=== PATIENT | male | born 1970 | race Caucasian/White ===

== ENCOUNTER 2018-12-09 07:56 | Emergency (ER) | payer BC, OTHER ==
[2018-12-09 10:49] VITALS: BP 146/80
--- NOTE | 2018-12-09 11:58 | UC ---
Neck Pain HPI - HPI Summary HPI Summary: W ILE AT WORK PATIENT WAS PULLING A ROPE WHEN HE FELL BACKWARDS AND STRUCK THE BACK OF HIS HEAD AND HIS SHOULDERS ON THE GROUND. NO LOC. NO HEADACHE. IS COMPLAINING OF NECK PAIN AND LEFT SHOULDER PAIN. HAS HISTORY OF C-SPINE FUSION. ] - History of Current Complaint Chief Complaint: UCHeadInjury Stated Complaint: HEAD/SHOULDER INJURY Time Seen by Provider: 12/09/18 08:15 Hx Obtained From: Patient Onset/Duration Of Injury/Symptoms: Hours Mechanism Of Injury: Blunt Trauma Timing: Constant Onset/Duration: Sudden Onset, Lasting Hours, Still Present Severity: Moderate Pain Intensity: 3 Pain Scale Used: 0-10 Numeric Character: Sharp, Aching, Stiff Aggravating Factors: Movement Alleviating Factors: Nothing Associated Signs & Symptoms: Positive: Negative Related History: Previous Neck Injury - Allergies/Home Medications Allergies/Adverse Reactions: Allergies Allergy/AdvReac Type Severity Reaction Status Date / Time No Known Allergies Allergy Verified 12/09/18 08:11 PMH/Surg Hx/FS Hx/Imm Hx - Additional Past Medical History Additional PMH: CHRONIC NECK PAIN, C-SPINE FUSION Endocrine History: Thyroid Disease Cardiovascular History: Hypertension - Surgical History Surgical History: Yes Surgery Procedure, Year, and Place: APPENDIX REMOVED 2008. fused c4-5-6, broken neck x2 - Family History Known Family History: Positive: None - Social History Alcohol Use: Occasionally Substance Use Type: None Smoking Status (MU): Light Every Day Tobacco Smoker Type: Cigarettes Amount Used/How Often: 1 tin per day When Did the Patient Quit Smoking/Using Tobacco: 16 years ago Household Exposure Type: Cigarettes - Immunization History Most Recent Influenza Vaccination: not recently Most Recent Tetanus Shot: UTD Review of Systems All Other Systems Reviewed And Are Negative: Yes Constitutional: Positive: Negative Skin: Positive: Negative Respiratory: Positive: Negative Cardiovascular: Positive: Negative Gastrointestinal: Positive: Negative Musculoskeletal: Positive: Arthralgia, Decreased ROM, Myalgia Physical Exam Triage Information Reviewed: Yes Appearance: Well-Nourished, Pain Distress - MODERATE Vital Signs: Initial Vital Signs Temp 99.5 F 12/09/18 08:06 Pulse 77 12/09/18 08:06 Resp 18 12/09/18 08:06 BP 144/102 12/09/18 08:06 Pulse Ox 96 12/09/18 08:06 Vital Signs Reviewed: Yes Eyes: Positive: Conjunctiva Clear ENT: Positive: Hearing grossly normal Neck: Positive: Supple, No Lymphadenopathy, Tenderness @ - POSTERIOR NECK Respiratory Exam: Normal Cardiovascular Exam: Normal Abdomen Description: Positive: Soft Musculoskeletal: Positive: No Edema, ROM Limited @ - NECK Neurological: Positive: Alert Psychological: Positive: Age Appropriate Behavior Skin: Negative: Rashes Diagnostics - Radiology CT C-SPINE Radiology Interpretation Completed By: Radiologist Summary of Radiographic Findings: Fusion of C4-C7. No fracture is identified. Neck Pain Course/Dx - Differential Dx/Diagnosis Provider Diagnosis: Contusion, Acute neck pain Discharge ED - Sign-Out/Discharge Documenting (check all that apply): Patient Departure All imaging exams completed and their final reports reviewed: Yes - Discharge Plan Condition: Stable Disposition: HOME Prescriptions: Cyclobenzaprine TAB* [Flexeril TAB*] 10 mg PO BID PRN #30 tab PRN Reason: Pain Ibuprofen TAB* [Motrin TAB* 600 MG] 1 tab PO Q6H PRN #30 tab PRN Reason: Pain Patient Education Materials: Contusion in Adults (ED), Acute Neck Pain (ED) Forms: *Work Release Referrals: Octavio PLAZA PRICE CHANGERLauren [Primary Care Provider] - If Needed Additional Instructions: CT SCAN OF YOUR NECK TODAY WAS NEGATIVE FOR ACUTE INJURY. TAKE 600MG IBUPROFEN EVERY 6 HRS AND ACETAMINOPHEN 650MG EVERY 6 HOURS - STAGGERED (SO YOU CAN TAKE SOMETHING EVERY 3 HOURS IF NEEDED.) GO TO THE ED WITHOUT FAIL IF YOU DEVELOP WORSENING PAIN, UNEQUAL PUPILS, VISUAL DISTURBANCE, GAIT INSTABILITY, SPEECH DIFFICULTY, NAUSEA/VOMITING, WORSENING HEADACHE, DIZZINESS, CONFUSION, WEAKNESS OR ANY OTHER CONCERNING SYMPTOMS. - Billing Disposition and Condition Condition: STABLE Disposition: Home
== END 2018-12-09 10:30 | disposition home or self-care (01) ==
LOC: UCEAST 07:56
DX: S10.93XA Contusion of unspecified part of neck, initial encounter (principal); W17.89XA Other fall from one level to another, initial encounter; Y93.39 Activity, other involving climbing, rappelling and jumping off; Y92.89 Other specified places as the place of occurrence of the external cause; Y99.0 Civilian activity done for income or pay; E07.9 Disorder of thyroid, unspecified; I10 Essential (primary) hypertension; F17.210 Nicotine dependence, cigarettes, uncomplicated
CPT/HCPCS: 72125; 99202; G0463

== ENCOUNTER 2018-12-11 11:07 | Emergency (ER) | payer BC, OTHER ==
[2018-12-11 11:24] VITALS: BP 132/85
--- NOTE | 2018-12-11 11:51 | UC ---
UC General HPI - HPI Summary HPI Summary: 48-year-old male comes in with a chief complaint of neck pain left trapezius area pain and intermittent numbness into both arms. 2 days ago patient had an injury at work and he had onset of pain in the neck and left trapezius area. He was seen here and had a CT scan did not show any fractures does show his fusion from C4 to C7 from a prior injury. He was prescribed a nonsteroidal anti -inflammatory and muscle relaxers. Since that time the pain has decreased however he's been having intermittent numbness into both arms. Has not noticed any weakness. The pain is worse with movement. It is more difficult to move the left shoulder due to the trapezius area left-sided pain. - History of Current Complaint Chief Complaint: UCBackPain Stated Complaint: NECK AND BACK INJURY CHECK UP Time Seen by Provider: 12/11/18 11:36 Pain Intensity: 2 - Allergy/Home Medications Allergies/Adverse Reactions: Allergies Allergy/AdvReac Type Severity Reaction Status Date / Time No Known Allergies Allergy Verified 12/11/18 11:24 PMH/Surg Hx/FS Hx/Imm Hx Previously Healthy: Yes - Surgical History Surgical History: Yes Surgery Procedure, Year, and Place: APPENDIX REMOVED 2008. fused c4-5-6, broken neck x2 - Family History Known Family History: Positive: None - Social History Alcohol Use: Occasionally Substance Use Type: None Smoking Status (MU): Light Every Day Tobacco Smoker Type: Cigarettes Amount Used/How Often: 1 tin per day When Did the Patient Quit Smoking/Using Tobacco: 16 years ago Household Exposure Type: Cigarettes - Immunization History Most Recent Influenza Vaccination: not recently Most Recent Tetanus Shot: UTD Review of Systems All Other Systems Reviewed And Are Negative: Yes Constitutional: Positive: Negative Skin: Positive: Negative Eyes: Positive: Negative ENT: Positive: Negative Respiratory: Positive: Negative Cardiovascular: Positive: Negative Gastrointestinal: Positive: Negative Motor: Positive: Other - SEE HPI Neurovascular: Positive: Other - SEE HPI Musculoskeletal: Positive: Other: - SEE HPI Neurological: Positive: Other - SEE HPI Psychological: Positive: Negative Is Patient Immunocompromised?: No Physical Exam Triage Information Reviewed: Yes Appearance: Well-Appearing, Well-Nourished, Pain Distress - MILD WITH ROM LEFT SHOULDER Vital Signs: Initial Vital Signs Temp 98.2 F 12/11/18 11:19 Pulse 70 12/11/18 11:19 Resp 16 12/11/18 11:19 BP 132/85 12/11/18 11:19 Pulse Ox 99 12/11/18 11:19 Vital Signs Reviewed: Yes Eye Exam: Normal Eyes: Positive: Conjunctiva Clear Neck: Positive: Supple Respiratory: Positive: No respiratory distress Musculoskeletal: Positive: Other: - Patient holds the left shoulder lower than the right shoulder. When I asked him about this he said is chronic due to an old clavicle fracture on the left. Normal radial pulses bilaterally., Hands and arms is normal capillary refill normal sensation. Full strength of fingers wrists and elbows and shoulders. And a extension the right arm goes to 160 the left goes to 90. And abduction the right arm goes to 150 the left arm goes to 80. Internal rotation on the right is T8 on the left that is L2. With internal rotation of the left arm patient complains of spasm and pain in the left trapezius. Neurological: Positive: Alert Psychological: Positive: Age Appropriate Behavior Skin Exam: Normal Course/Dx - Course Course Of Treatment: On examination today I did not find any focal neurologic deficit. Patient will continue the nonsteroidal anti-inflammatory and the Flexeril and then will follow up with occupational medicine or sports medicine. Because he is not improving in because of the intermittent numbness I did write a note so that he' s out of work until cleared by medical provider. We also discussed if he gets numbness or weakness but does not go away he needs to go the emergency department for further evaluation and care which he agreed with. - Diagnoses Provider Diagnosis: Neck pain, Cervical radiculopathy, Trapezius muscle spasm Discharge ED - Sign-Out/Discharge Documenting (check all that apply): Patient Departure All imaging exams completed and their final reports reviewed: No Studies - Discharge Plan Condition: Stable Disposition: HOME Patient Education Materials: Cervical Radiculopathy (ED), Acute Neck Pain (ED) Forms: *Work Release Referrals: Octavio MARTIN,Lauren [Primary Care Provider] - Carmelo Tolliver MD [Medical Doctor] - [facility] [Provider Group] Additional Instructions: FOLLOW UP WITH DR TOLLIVER, OCCUPATIONAL MEDICINE, OR SPORTS MEDICINE. GET RECHECKED SOONER IF YOUR CONDITION WORSENS; PAIN, WEAKNESS, NUMBNESS OR ANY QUESTIONS OR CONCERNS. - Billing Disposition and Condition Condition: STABLE Disposition: Home
== END 2018-12-11 12:08 | disposition home or self-care (01) ==
LOC: UCEAST 11:07
DX: M54.12 Radiculopathy, cervical region (principal); M62.838 Other muscle spasm; F17.210 Nicotine dependence, cigarettes, uncomplicated
CPT/HCPCS: 99211; G0463